=== PATIENT | female | born 1980 ===

== ENCOUNTER → 2018-11-07 | Outpatient (REF) | payer BC | LOC: M LAB LCGH 09:29 | PROVIDERS: ATTEND Nurse Practitioner Family | DX: D48.9 Neoplasm of uncertain behavior, unspecified (principal) ==

== ENCOUNTER → 2019-05-13 | Outpatient (REF) | payer BC | LOC: M LAB LCGH 13:51 | PROVIDERS: ATTEND Obstetrics & Gynecology | DX: Z01.411 Encounter for gynecological examination (general) (routine) with abnormal findings (principal) | CPT/HCPCS: 87624; G0123 ==